=== PATIENT | female | born 1970 | race Caucasian/White ===

== ENCOUNTER 2016-05-30 06:02 | Day surgery (SDC) | payer BC ==
[2016-05-30] MEDS ORDERED: LIDOCAINE W/ SODIUM BICARB 0.5 ML SYR ONE (06:03)
[2016-05-30] MEDS ORDERED: Lactated Ringers 2,000 ML PRIMARY IV ONE (06:04)
[2016-05-30] MEDS ORDERED: Sodium Chloride 0.9% 100 ML IV ONE (06:04)
[2016-05-30 06:26] LABS: BILIRUBIN,URINE SMALL (NEG); CLARITY,URINE CLEAR (CLEAR); GLUCOSE, URINE (UA) NEGATIVE (NEG); NITRATE,URINE NEGATIVE (NEG); OCCULT BLOOD,URINE MODERATE (NEG); PH,URINE 5.5 (5.0-8.5); PROTEIN,URINE NEGATIVE (NEG); URINE SPECIFIC GRAVITY - MAN 1.025; UROBILINOGEN,URINE 0.2 mg/dL (0.2)
[2016-05-30 06:27] LABS: URINE SAMPLE TYPE CLEAN CATCH URINE
[2016-05-30 06:28] LABS: LEUKOCYTE ESTERASE ,URINE TRACE (NEG)
[2016-05-30 06:44] LABS: HEMATOCRIT 43.1 % (37.0-47.0)
[2016-05-30] MEDS ORDERED: BUPIVACAINE 0.25% W/ EPI - 10 ML VIAL ONE ×2 (06:49→08:24)
[2016-05-30] MEDS ORDERED: NORMAL SALINE 10 ML SYRINGE FLUSH IVP PRN ×2 (06:52→09:33)
[2016-05-30] MEDS ORDERED: fentaNYL Inj 100 MCG/2 ML VIAL IVP PRN (06:52)
[2016-05-30] MEDS ORDERED: PROMETHAZINE 25 MG/1 ML VIAL IM PRN (06:52)
[2016-05-30] MEDS ORDERED: HYDROmorphone 2 MG/1 ML IVP PRN (06:52)
[2016-05-30] MEDS ORDERED: Lactated Ringers 1,000 ML PRIMARY IV SCH (07:00)
[2016-05-30] MEDS ORDERED: MIDAZOLAM 5 MG/1 ML ONE (07:03)
[2016-05-30] MEDS ORDERED: LIDOCAINE MPF 2% - 5 ML (20 MG/1 ML) ONE (07:03)
[2016-05-30] MEDS ORDERED: fentaNYL Inj 250 MCG/5 ML VIAL ONE (07:03)
[2016-05-30] MEDS ORDERED: ROCURONIUM 10 MG/1 ML - 5 ML VIAL IVP ONE (07:03)
[2016-05-30] MEDS ORDERED: DEXAMETHASONE SOD PHOSPHATE 4 MG/1 ML VIAL ONE (07:22)
[2016-05-30] MEDS ORDERED: ONDANSETRON 4 MG/2 ML VIAL ONE (08:05)
[2016-05-30] MEDS ORDERED: KETAMINE 100 MG/1 ML - 5 ML ONE ×2 (08:05→10:21)
[2016-05-30] MEDS ORDERED: KETOROLAC 30 MG/1 ML VIAL ONE (08:05)
[2016-05-30] MEDS ORDERED: HYDROmorphone 2 MG/1 ML ONE ×2 (08:05→10:02)
[2016-05-30] MEDS ORDERED: Lactated Ringers 1,000 ML PRIMARY IV ONE ×3 (08:13→12:24)
[2016-05-30] MEDS: Opium-Belladonna 16.2-60mg 1 EACH SUPP.RECT RECTAL ONE ×2 (08:43→09:28)
[2016-05-30] MEDS: LIDOCAINE HCL 2 % 10 ML JELLY URO-JECT TOPICAL ONE ×2 (08:43→09:28)
[2016-05-30] MEDS ORDERED: SUGAMMADEX SODIUM 200 MG/2 ML VIAL IV ONE (09:27)
[2016-05-30] MEDS ORDERED: IBUPROFEN 800 MG TABLET PO PRN (09:33)
[2016-05-30] MEDS ORDERED: KETOROLAC 30 MG/1 ML VIAL IVP PRN (09:33)
[2016-05-30] MEDS ORDERED: Ondansetron ODT Tab 8 MG TAB PO PRN (09:33)
--- NOTE | 2016-05-30 09:37 | OB.OP.NOTE ---
Operative Report Surgeon: Venus Respiratory Care Technician: Alcides Nina MD Anesthesia Type: General Anesthesia Provider: Shane Barber CRNA Surgery Date: 05/30/16 Preoperative Diagnosis: MMR/Dysmenorrhea/JACI Postoperative Diagnosis: Same Procedure: da Sawyer Hysterectomy/Bilateral Salpingectomy/TVT-O/Cystoscopy Estimated Blood Loss (mL): 140 Fluids: 3,000 ml Complications: None Findings at Surgery: Normal size uterus with obliterated endometrial cavity. Tubes s/p BTL. Normal ovaries, left with CL. No visible evidence of bowel, bladder, or ureter injury. At cystoscopy, both ureters were seen to eject urine, and the bubble was at the dome. Indications for the Procedure: MMR/Dysmenorrhea/JACI Description of Procedure: See dictated operative report. Plan: Routine post op care and discharge to home.
[2016-05-30 10:30] VITALS: RESP 9
[2016-05-30] MEDS ORDERED: oxyCODONE-ACETAMINOPHEN 5-325 TAB PO ONE ×2 (10:59→13:08)
[2016-05-30] MEDS: oxyCODONE-ACETAMINOPHEN 5-325 TAB PO PRN ×2 (11:00→13:08)
[2016-05-30] MEDS ORDERED: PROMETHAZINE 25 MG/1 ML VIAL IM ONE (14:13)
[2016-05-30 15:17] VITALS: TEMP 97.6
[2016-05-30] MEDS ORDERED: DOCUSATE 100 MG CAPSULE PO SCH (21:00)
== END 2016-05-30 15:05 | disposition home or self-care (01) ==
LOC: SDSC 06:02
PROVIDERS: ATTEND Obstetrics & Gynecology
DX: N92.1 Excessive and frequent menstruation with irregular cycle (principal); N94.6 Dysmenorrhea, unspecified; N39.3 Stress incontinence (female) (male)
CPT/HCPCS: 57288; 58552; 81001; 84703; 85014; 85018; J0694; J1885; J2704; J3010; J1100; J1170; J2001; J2250; J2405; J2550; J7050; J7120

== ENCOUNTER → 2016-10-29 | Outpatient (CLI) | payer BC ==
[2016-10-29 08:52] LABS: FREE T4 (FREE THYROXINE) 1.12 ng/dL (0.93-1.71)
== END ==
LOC: LAB 07:06
PROVIDERS: ATTEND Obstetrics & Gynecology Gynecology
DX: E03.9 Hypothyroidism, unspecified (principal)
CPT/HCPCS: 36415; 84439; 84443